=== PATIENT | male | born 1960 | race Caucasian/White ===

== ENCOUNTER 2021-05-09 12:43 | Outpatient (CLI) | payer OTHER | END 2021-05-09 13:02 | disposition home or self-care (01) | LOC: TOM 12:43 | PROVIDERS: ATTEND Otolaryngology | DX: J32.8 Other chronic sinusitis (principal); R07.1 Chest pain on breathing; R05.8 Other specified cough ==

== ENCOUNTER 2023-03-25 05:08 | Inpatient (IN) | payer OTHER ==
[~2023-03-25] VITALS: Ht 182.9 cm; Wt 70.3 kg
[2023-03-25 05:59] LABS: HEMATOCRIT 42.5 % (39.0-48.0); HEMOGLOBIN 13.9 g/dL (13-16.00); MEAN CELL VOLUME 94.3 fL (80.0-100.00); MEAN CORPUSCULAR HEMOGLOBIN 30.9 pg (27.00-32.0); MEAN CORPUSCULAR HGB CONC 32.7 g/dl (32.0-36.0); RED CELL DISTRIBUTION WIDTH 13.4 % (11.5-14.5)
[2023-03-25 06:46] LABS: PLATELET COUNT 173 K/uL (150-450)
[2023-03-25 06:49] LABS: ALBUMIN 3.5 gm/dL (3.4-5.0); BILIRUBIN TOTAL 0.83 mg/dL (0.3-1.2); CALCIUM 8.5 mg/dL (8.5-10.1); CREATININE SERUM 1.56 mg/dL (0.70-1.30); GFR 45.03; GLOBULINA 2.4 G/DL (2.4-3.5); POTASSIUM 3.88 mEq/L (3.5-5.1); TOTAL PROTEIN 5.9 gm/dL (6.4-8.2)
[2023-03-25 08:02] LABS: INR 1.14; PARTIAL THROMBOPLASTIN TIME 23.4 SECONDS (22.0-34.0); PROTHROMBIN TIME 11.9 SECONDS (9.0-11.5)
[2023-03-25 08:13] LABS: COCAINE NEGATIVE (NEGATIVE); METHADONE NEGATIVE (NEGATIVE); OPIATES POSITIVE (NEGATIVE); THC ( Cannabinoids) NEGATIVE (NEGATIVE)
[2023-03-25 20:29] LABS: URINE APPEARANCE Cloudy; URINE BILIRRUBIN Negative (NEGATIVE); URINE BLOOD Small; URINE COLOR Yellow; URINE GLUCOSE Negative (NEGATIVE); URINE LEUKOCYTE Large; URINE NITRATE Negative; URINE PROTEIN Negative (NEGATIVE); URINE UROBILINOGEN 0.2 E.U./dl
[2023-03-25 20:32] LABS: URINE BACTERIA 1836.9 uL (0.0-1933); URINE EPITHELIAL CELLS 9.1 uL (0.0-38.8); URINE RBC 9.6 uL (0.0-20.8); URINE WBC 634.6 uL (0.0-23.2)
== END 2023-03-26 08:00 | disposition designated cancer center or children's hospital (05) | DRG 310 ==
LOC: ER 05:08 → ICU-2 18:47
PROVIDERS: General Practice; ADMIT Internal Medicine; ATTEND Internal Medicine
DX: I44.2 Atrioventricular block, complete (principal); Z20.822 Contact with and (suspected) exposure to COVID-19; I95.89 Other hypotension

== ENCOUNTER 2024-06-12 12:23 | Outpatient (CLI) | payer OTHER | END 2024-06-12 12:25 | disposition home or self-care (01) | LOC: NUCLEAR 12:23 | PROVIDERS: ATTEND Internal Medicine | DX: I10 Essential (primary) hypertension (principal); R07.9 Chest pain, unspecified ==

== ENCOUNTER 2024-07-13 07:33 | Outpatient (CLI) | payer OTHER | END 2024-07-13 07:34 | disposition home or self-care (01) | LOC: NUCLEAR 07:33 | PROVIDERS: ATTEND Internal Medicine | DX: R07.9 Chest pain, unspecified (principal) ==